=== PATIENT | male | born 1955 | race Caucasian/White ===

== ENCOUNTER → 2020-01-11 | Outpatient (CLI) | payer MEDICARE ==
[~2020-01-11] MED LIST: ATOR-2 PO; LISI-167 PO
== END | disposition home or self-care (01) ==
LOC: RAD 13:47
PROVIDERS: ATTEND Urology
DX: N20.0 Calculus of kidney (principal)
CPT/HCPCS: 74018

== ENCOUNTER → 2020-02-10 | Outpatient (CLI) | payer MEDICARE | END | disposition home or self-care (01) | LOC: STAR 12:06 | PROVIDERS: ATTEND Anesthesiology | DX: Z20.828 Contact with and (suspected) exposure to other viral communicable diseases (principal) | CPT/HCPCS: 36415; 87635 ==

== ENCOUNTER → 2020-02-14 | Outpatient (CLI) | payer MEDICARE ==
[~2020-02-14] MED LIST changes: +TAMS-11 PO
== END | disposition home or self-care (01) ==
LOC: RAD 11:51
PROVIDERS: ATTEND Urology
DX: N20.0 Calculus of kidney (principal)
CPT/HCPCS: 74018

== ENCOUNTER 2020-02-15 05:46 | Day surgery (SDC) | payer MEDICARE ==
[~2020-02-15] VITALS: Ht 175.3 cm; Wt 93.1 kg
[~2020-02-15 05:46] MED LIST changes: -TAMS-11 PO
[2020-02-15] MEDS ORDERED: LACTATED RINGERS 1,000 ML IV SCH (06:47)
[2020-02-15] MEDS ORDERED: TAMS-11 PO (06:50)
[2020-02-15] MEDS ORDERED: CHLORHEXIDINE 15 ML UDC ONE (06:56)
[2020-02-15] MEDS ORDERED: CHLORHEXIDINE 15 ML UDC MM ONE (07:00)
[2020-02-15] MEDS ORDERED: MAGNESIUM SULFATE 1 GM/2 ML ONE (07:04)
[2020-02-15] MEDS ORDERED: LIDOCAINE 1%, 20ML ONE (07:05)
[2020-02-15] MEDS ORDERED: LABETALOL 5MG/ML, 20ML ONE (07:05)
[2020-02-15] MEDS ORDERED: LIDOCAINE-MPF 2% ,5ML ONE (07:07)
[2020-02-15] MEDS ORDERED: GLYCOPYRROLATE 0.2MG/1ML, 5ML ONE (07:07)
[2020-02-15] MEDS ORDERED: PROPOFOL 10 MG/ML, 20ML ONE (07:07)
[2020-02-15] MEDS ORDERED: DEXAMETHASONE 4 MG/ML, 1ML ONE (07:07)
[2020-02-15] MEDS ORDERED: ROCURONIUM 10MG/ML,5ML ONE (07:07)
[2020-02-15] MEDS ORDERED: MIDAZOLAM 1 MG/ML, 2ML ONE (07:08)
[2020-02-15] MEDS ORDERED: FENTANYL PF 100 MCG/2ML ONE (07:08)
[2020-02-15 07:14] VITALS: BP 126/84
[2020-02-15] MEDS ORDERED: CEFAZOLIN 1,000 MG ONE (07:26)
[2020-02-15] MEDS ORDERED: LABETALOL 5MG/ML, 20ML IV PRN (08:00)
[2020-02-15] MEDS ORDERED: DIPHENHYDRAMINE 50 MG/ML, 1ML IVPush PRN (08:00)
[2020-02-15] MEDS ORDERED: MIDAZOLAM 1 MG/ML, 2ML IV PRN (08:00)
[2020-02-15] MEDS ORDERED: ALBUTEROL/IPRATROPIUM 2.5MG/0.5MG, 3 ML NPPB PRN (08:00)
[2020-02-15] MEDS ORDERED: METHOCARBAMOL 1,000 MG in DEXTROSE 5% 100 ML IV PRN (08:00)
[2020-02-15] MEDS ORDERED: KETOROLAC 30 MG/1 ML IVPush PRN (08:00)
[2020-02-15] MEDS ORDERED: EPHEDRINE 50 MG/ML, 1ML IM PRN (08:00)
[2020-02-15] MEDS ORDERED: HYDROcodone/APAP 7.5-325MG/15ML UDC PO PRN (08:00)
[2020-02-15] MEDS ORDERED: LORazepam 2 MG/ML, 1ML IVPush PRN (08:00)
[2020-02-15] MEDS ORDERED: HYDROmorphone 1 MG/ML, 1ML INJ IVPush PRN (08:00)
[2020-02-15] MEDS ORDERED: METOCLOPRAMIDE 5 MG/ML, 2ML IVPush PRN (08:00)
[2020-02-15] MEDS ORDERED: HALOPERIDOL 5 MG/ML IV PRN (08:00)
[2020-02-15] MEDS ORDERED: OXYcodone 5 MG/5 ML ORAL.SOL UDC PO PRN (08:00)
[2020-02-15] MEDS ORDERED: FENTANYL PF 100 MCG/2ML IV PRN (08:00)
[2020-02-15] MEDS ORDERED: MEPERIDINE/PF 25MG/0.5ML IVPush PRN (08:00)
[2020-02-15] MEDS ORDERED: EPHEDRINE 50 MG/ML, 1ML IVPush PRN (08:00)
[2020-02-15] MEDS ORDERED: ACETAMINOPHEN 325 MG TABLET PO PRN (08:00)
[2020-02-15] MEDS ORDERED: DIAZEPAM 5 MG/ML, 2ML IVPush PRN (08:00)
[2020-02-15] MEDS ORDERED: ONDANSETRON 2MG/ML, 2ML IVPush PRN (08:00)
[2020-02-15] MEDS ORDERED: hydrALAzine 20 MG/ML, 1ML IV PRN (08:00)
[2020-02-15] MEDS ORDERED: LISINOPRIL 10 MG TABLET PO SCH (09:00)
[2020-02-15] MEDS ORDERED: TAMSULOSIN 0.4 MG CAP.ER.24H PO SCH (09:00)
[2020-02-15] MEDS ORDERED: ATORVASTATIN 80 MG TABLET PO SCH (21:00)
== END 2020-02-15 10:58 | disposition home or self-care (01) ==
LOC: OUT 05:46
PROVIDERS: ATTEND Urology
DX: N20.1 Calculus of ureter (principal); E11.9 Type 2 diabetes mellitus without complications; E78.5 Hyperlipidemia, unspecified; I10 Essential (primary) hypertension; N40.1 Benign prostatic hyperplasia with lower urinary tract symptoms; Z87.891 Personal history of nicotine dependence; Z79.899 Other long term (current) drug therapy; Z98.890 Other specified postprocedural states; Z72.89 Other problems related to lifestyle; Z79.2 Long term (current) use of antibiotics; Z82.49 Family history of ischemic heart disease and other diseases of the circulatory system
CPT/HCPCS: 52310; C1769; J0690; J1100; J1885; J2250; J2704; J3010; J3475; J7120